=== PATIENT | male | born 1975 | race Caucasian/White ===

== ENCOUNTER 2021-12-25 05:57 | Emergency (ER) | payer MEDICAID ==
[~2021-12-25] VITALS: Ht 175.3 cm; Wt 109.1 kg
[2021-12-25] MEDS ORDERED: LORazepam 2 mg/ml vial IV ONE (06:20)
[2021-12-25 06:39] LABS: BASOPHILS % (AUTO) 0.5 % (0-1); EOSINOPHILS # (AUTO) 0.2 X10'3 (0-0.9); EOSINOPHILS % (AUTO) 3.3 % (0-6); HEMATOCRIT 41.4 % (42.0-52.0); LYMPHOCYTES # (AUTO) 1.9 X10'3 (1.1-4.8); LYMPHOCYTES % (AUTO) 29.6 % (21-51); MEAN CORPUSCULAR HEMOGLOBIN 30.5 PG (27.0-31.0); MEAN CORPUSCULAR HGB CONC 33.9 g/dL (33.0-36.5); MEAN CORPUSCULAR VOLUME 90.1 FL (78-98); MEAN PLATELET VOLUME 7.8 FL (7.4-10.4); MONOCYTES # (AUTO) 0.4 X10'3 (0-0.9); MONOCYTES % (AUTO) 6.4 % (2-12); NEUTROPHILS # (AUTO) 3.8 X10'3 (1.8-7.7); NEUTROPHILS % (AUTO) 60.2 % (42-75); PLATELET COUNT 246 X10'3 (140-440); WHITE BLOOD COUNT 6.4 X10'3 (4.5-11.0)
[2021-12-25 06:48] LABS: ALANINE AMINOTRANSFERASE 50 U/L (12-78); ALBUMIN 3.1 G/DL (3.4-5.0); ALBUMIN/GLOBULIN RATIO 0.9 (1.1-1.5); ALKALINE PHOSPHATASE 94 IU/L (46-116); ANION GAP 9 (8-16); ASPARTATE AMINO TRANSFERASE 35 U/L (10-37); BILIRUBIN,TOTAL 0.3 MG/DL (0.1-1.0); BLOOD UREA NITROGEN 24 MG/DL (7-18); BUN/CREATININE RATIO 29.6 (5.4-32.0); CALCIUM 8.4 MG/DL (8.5-10.1); CHLORIDE 109 MMOL/L (99-107); CREATININE 0.81 MG/DL (0.60-1.10); GLUCOSE 110 MG/DL (70-104); POTASSIUM 3.4 MMOL/L (3.5-5.1); SODIUM 141 MMOL/L (135-145); TOTAL PROTEIN 6.7 G/DL (6.4-8.2); eGFR > 90 ML/MIN
[2021-12-25 07:40] VITALS: BP 122/88
== END 2021-12-25 07:46 | disposition home or self-care (01) ==
LOC: ER 05:58
DX: R06.02 Shortness of breath (principal); F41.9 Anxiety disorder, unspecified; Z88.5 Allergy status to narcotic agent
CPT/HCPCS: 36415; 71045; 80053; 83880; 84484; 85025; 93005; 96374; 99285; J2060

== ENCOUNTER 2022-03-31 18:53 | Emergency (ER) | payer SELFPAY ==
[~2022-03-31] VITALS: Ht 172.7 cm; Wt 109.1 kg
[2022-03-31 18:57] VITALS: BP 124/92
== END 2022-03-31 19:18 ==
LOC: ER 18:53
DX: Z00.8 Encounter for other general examination (principal); F15.10 Other stimulant abuse, uncomplicated; I10 Essential (primary) hypertension; R00.0 Tachycardia, unspecified; F32.A Depression, unspecified; F17.200 Nicotine dependence, unspecified, uncomplicated; Z88.5 Allergy status to narcotic agent
CPT/HCPCS: 99283

== ENCOUNTER 2022-12-15 14:09 | Emergency (ER) | payer MEDICAID ==
[~2022-12-15] VITALS: Ht 175.3 cm; Wt 113.0 kg
--- NOTE | 2022-12-15 14:26 | NUR ---
DISCUSSED PTS S\S WITH MD FARRIS - ORDERS HAVE BEEN ENTERED.
[2022-12-15 14:39] LABS: BASOPHILS % (AUTO) 0.5 % (0-1); EOSINOPHILS # (AUTO) 0.2 X10'3 (0-0.9); EOSINOPHILS % (AUTO) 3.6 % (0-6); HEMATOCRIT 50.1 % (42.0-52.0); HEMOGLOBIN 16.6 g/dl (14.0-17.9); LYMPHOCYTES # (AUTO) 1.6 X10'3 (1.1-4.8); LYMPHOCYTES % (AUTO) 31.9 % (21-51); MEAN CORPUSCULAR HEMOGLOBIN 31.6 PG (27.0-31.0); MEAN CORPUSCULAR VOLUME 95.7 FL (78-98); MEAN PLATELET VOLUME 8.2 FL (7.4-10.4); MONOCYTES # (AUTO) 0.4 X10'3 (0-0.9); MONOCYTES % (AUTO) 7.2 % (2-12); NEUTROPHILS # (AUTO) 2.9 X10'3 (1.8-7.7); NEUTROPHILS % (AUTO) 56.8 % (42-75); PLATELET COUNT 231 X10'3 (140-440); RED BLOOD COUNT 5.24 X10'6 (4.70-6.10); RED CELL DISTRIBUTION WIDTH 14.9 % (11.5-14.5)
[2022-12-15 14:55] LABS: ALANINE AMINOTRANSFERASE 30 U/L (12-78); ALBUMIN 3.8 G/DL (3.4-5.0); ALBUMIN/GLOBULIN RATIO 1.1 (1.1-1.5); ALKALINE PHOSPHATASE 82 IU/L (46-116); ANION GAP 10 (8-16); ASPARTATE AMINO TRANSFERASE 16 U/L (10-37); BILIRUBIN,TOTAL 0.9 MG/DL (0.1-1.0); BLOOD UREA NITROGEN 13 MG/DL (7-18); BUN/CREATININE RATIO 14.1 (10.0-20.0); CALCIUM 8.7 MG/DL (8.5-10.1); CHLORIDE 108 MMOL/L (99-107); CREATININE 0.92 MG/DL (0.60-1.10); GLUCOSE 95 MG/DL (70-104); POTASSIUM 4.1 MMOL/L (3.5-5.1); SODIUM 144 MMOL/L (135-145); TOTAL CARBON DIOXIDE 26.1 MMOL/L (24-32); TOTAL PROTEIN 7.4 G/DL (6.4-8.2); eGFR 88 ML/MIN
[2022-12-15 15:06] LABS: MAGNESIUM 2.2 MG/DL (1.5-2.4)
--- NOTE | 2022-12-15 15:23 | NUR ---
PT HAS NO NEURO SYMPTOMS. DR. FARRIS AT BEDSIDE PERFORMING NEURO ASSESSMENT. PER MD PT DOES NOT MEET STROKE CRITERIA.
[2022-12-15 16:17] VITALS: BP 129/98
[2022-12-15 16:33] LABS: URINE AMPHETAMINE SCREEN NEGATIVE (Neg); URINE BARBITUATE SCREEN NEGATIVE (Neg); URINE BENZODIAZEPINES SCREEN NEGATIVE (Neg); URINE CANNABINOID SCREEN NEGATIVE (Neg); URINE COCAINE SCREEN NEGATIVE (Neg); URINE METHADONE SCREEN NEGATIVE (Neg); URINE OPIATE SCREEN NEGATIVE (Neg); URINE PHENCYCLIDINE SCREEN NEGATIVE (Neg)
== END 2022-12-15 16:20 | disposition home or self-care (01) ==
LOC: ER 14:10
DX: R42 Dizziness and giddiness (principal); F15.10 Other stimulant abuse, uncomplicated
CPT/HCPCS: 36415; 70450; 71045; 80053; 80305; 83735; 83880; 84484; 85025; 93005; 99285

== ENCOUNTER 2023-02-08 08:38 | Emergency (ER) | payer MEDICAID ==
[~2023-02-08] VITALS: Ht 175.3 cm; Wt 120.0 kg
[2023-02-08 08:46] VITALS: BP 150/103
[2023-02-08] MEDS ORDERED: AMOX-580 PO (09:09)
== END 2023-02-08 09:16 | disposition home or self-care (01) ==
LOC: ER 08:38
DX: K04.7 Periapical abscess without sinus (principal); F32.A Depression, unspecified; Z88.5 Allergy status to narcotic agent; Z79.899 Other long term (current) drug therapy
CPT/HCPCS: 99283

== ENCOUNTER 2023-07-04 20:33 | Emergency (ER) | payer MEDICAID ==
[~2023-07-04] VITALS: Ht 175.3 cm; Wt 108.7 kg
[~2023-07-04 20:33] MED LIST: DOCU-148 PO
[2023-07-04 20:39] VITALS: BP 166/98; PULSE 94; RESP 16; TEMP 98.5; O2SAT 96
[2023-07-04] MEDS ORDERED: DOXYCYCLINE 100MG CAPSULE PO STA (21:23)
[2023-07-04] MEDS ORDERED: DOXY-356 PO (21:26)
== END 2023-07-04 21:43 | disposition home or self-care (01) ==
LOC: ER 20:34
DX: L03.012 Cellulitis of left finger (principal); F15.10 Other stimulant abuse, uncomplicated; F32.A Depression, unspecified; Z88.5 Allergy status to narcotic agent; Z79.899 Other long term (current) drug therapy
CPT/HCPCS: 99283; A6258

== ENCOUNTER 2023-10-02 10:20 | Emergency (ER) | payer MEDICAID ==
[~2023-10-02] VITALS: Ht 175.3 cm; Wt 109.1 kg
[2023-10-02 10:28] VITALS: TEMP 97.9
[2023-10-02 11:07] LABS: BASOPHILS # (AUTO) 0.1 X10'3 (0-0.2); EOSINOPHILS # (AUTO) 0.1 X10'3 (0-0.9); EOSINOPHILS % (AUTO) 1.2 % (0-6); HEMATOCRIT 47.7 % (42.0-52.0); HEMOGLOBIN 16.4 g/dl (14.0-17.9); LYMPHOCYTES # (AUTO) 1.3 X10'3 (1.1-4.8); LYMPHOCYTES % (AUTO) 22.4 % (21-51); MEAN CORPUSCULAR HEMOGLOBIN 33.5 PG (27.0-31.0); MEAN CORPUSCULAR HGB CONC 34.3 g/dL (33.0-36.5); MEAN CORPUSCULAR VOLUME 97.7 FL (78-98); MEAN PLATELET VOLUME 8.2 FL (7.4-10.4); MONOCYTES # (AUTO) 0.3 X10'3 (0-0.9); NEUTROPHILS # (AUTO) 3.9 X10'3 (1.8-7.7); NEUTROPHILS % (AUTO) 69.4 % (42-75); PLATELET COUNT 239 X10'3 (140-440); RED BLOOD COUNT 4.88 X10'6 (4.70-6.10); RED CELL DISTRIBUTION WIDTH 13.6 % (11.5-14.5); WHITE BLOOD COUNT 5.6 X10'3 (4.5-11.0)
[2023-10-02 11:25] LABS: ALANINE AMINOTRANSFERASE 41 U/L (12-78); ALBUMIN/GLOBULIN RATIO 1.1 (1.1-1.5); ALKALINE PHOSPHATASE 69 IU/L (46-116); ANION GAP 10 (8-16); ASPARTATE AMINO TRANSFERASE 25 U/L (10-37); BILIRUBIN,TOTAL 0.7 MG/DL (0.1-1.0); BLOOD UREA NITROGEN 19 MG/DL (7-18); BUN/CREATININE RATIO 20.4 (10.0-20.0); CALCIUM 9.1 MG/DL (8.5-10.1); CHLORIDE 107 MMOL/L (99-107); CREATININE 0.93 MG/DL (0.60-1.10); GLUCOSE 100 MG/DL (70-104); POTASSIUM 3.9 MMOL/L (3.5-5.1); SODIUM 143 MMOL/L (135-145); TOTAL CARBON DIOXIDE 25.8 MMOL/L (24-32); TOTAL PROTEIN 7.6 G/DL (6.4-8.2); eCRCL 96 ML/MIN; eGFR 86 ML/MIN
[2023-10-02 11:39] LABS: PRO BRAIN NATRIURETIC PEPTIDE < 30 PG/ML (0-125)
[2023-10-02] MEDS ORDERED: HYDR25CA PO (12:24)
[2023-10-02 12:32] VITALS: BP 129/94; PULSE 86; RESP 16; O2SAT 95
== END 2023-10-02 12:40 | disposition home or self-care (01) ==
LOC: ER 10:21
DX: R07.9 Chest pain, unspecified (principal); F41.9 Anxiety disorder, unspecified; R42 Dizziness and giddiness; F32.A Depression, unspecified; Z88.5 Allergy status to narcotic agent; Z79.899 Other long term (current) drug therapy
CPT/HCPCS: 36415; 71045; 80053; 83880; 84484; 85025; 93005; 99285

== ENCOUNTER 2024-02-11 11:07 | Emergency (ER) | payer MEDICAID ==
[~2024-02-11] VITALS: Ht 175.3 cm; Wt 105.7 kg
[~2024-02-11 11:07] MED LIST changes: +HYDR25CA PO
[2024-02-11 11:46] VITALS: TEMP 98.2
[2024-02-11] MEDS ORDERED: CYCL-1 PO (12:48)
[2024-02-11 12:57] VITALS: BP 118/65; PULSE 65; RESP 14; O2SAT 99
== END 2024-02-11 12:53 | disposition home or self-care (01) ==
LOC: ER 11:07
DX: M25.512 Pain in left shoulder (principal); F15.90 Other stimulant use, unspecified, uncomplicated; Z88.5 Allergy status to narcotic agent; Z79.899 Other long term (current) drug therapy
CPT/HCPCS: 73030; 93005; 99283

== ENCOUNTER 2024-02-19 09:33 | Emergency (ER) | payer MEDICAID ==
[~2024-02-19] VITALS: Ht 175.3 cm; Wt 107.8 kg
[~2024-02-19 09:33] MED LIST changes: +CYCL-1 PO
[2024-02-19 09:34] VITALS: BP 174/111; PULSE 82; RESP 16; O2SAT 94
[2024-02-19] MEDS ORDERED: HYDR-3965 PO (09:54)
[2024-02-19 10:03] VITALS: TEMP 98
== END 2024-02-19 10:10 | disposition home or self-care (01) ==
LOC: ER 09:33
DX: M25.512 Pain in left shoulder (principal); F15.90 Other stimulant use, unspecified, uncomplicated; Z88.5 Allergy status to narcotic agent; Z79.899 Other long term (current) drug therapy
CPT/HCPCS: 99283

== ENCOUNTER 2024-06-09 17:17 | Emergency (ER) | payer MEDICAID ==
[~2024-06-09] VITALS: Ht 175.3 cm; Wt 104.5 kg
[2024-06-09 17:26] VITALS: BP 144/98; PULSE 91; RESP 18; O2SAT 95
[2024-06-09 18:02] LABS: BILIRUBIN,URINE NEGATIVE (Neg); CLARITY,URINE CLEAR (Clear); COLOR,URINE YELLOW (Yellow); GLUCOSE, URINE NEGATIVE (Neg); KETONES,URINE NEGATIVE (Neg); LEUKOCYTE ESTERASE ,URINE NEGATIVE (Neg); NITRITES, URINE NEGATIVE (Neg); OCCULT BLOOD,URINE NEGATIVE (Neg); PROTEIN,URINE NEGATIVE (Neg); UROBILINOGEN,URINE 0.2 E.U/dL (0.2-1.0)
[2024-06-09 18:03] LABS: UA COLLECTION TYPE CLN CATCH MIDSTREAM
[2024-06-09 19:02] LABS: BASOPHILS # (AUTO) 0.1 X10'3 (0-0.2); BASOPHILS % (AUTO) 1.2 % (0-1); EOSINOPHILS # (AUTO) 0.1 X10'3 (0-0.9); EOSINOPHILS % (AUTO) 2.8 % (0-6); HEMATOCRIT 42.1 % (42.0-52.0); HEMOGLOBIN 14.3 g/dl (14.0-17.9); LYMPHOCYTES # (AUTO) 1.4 X10'3 (1.1-4.8); MEAN CORPUSCULAR HEMOGLOBIN 34.5 PG (27.0-31.0); MEAN CORPUSCULAR HGB CONC 33.9 g/dL (33.0-36.5); MEAN CORPUSCULAR VOLUME 101.8 FL (78-98); MEAN PLATELET VOLUME 7.7 FL (7.4-10.4); MONOCYTES # (AUTO) 0.4 X10'3 (0-0.9); MONOCYTES % (AUTO) 9.4 % (2-12); NEUTROPHILS # (AUTO) 2.1 X10'3 (1.8-7.7); NEUTROPHILS % (AUTO) 51.6 % (42-75); PLATELET COUNT 219 X10'3 (140-440); RED BLOOD COUNT 4.13 X10'6 (4.70-6.10); RED CELL DISTRIBUTION WIDTH 13.8 % (11.5-14.5); WHITE BLOOD COUNT 4.1 X10'3 (4.5-11.0)
[2024-06-09 19:20] LABS: ALANINE AMINOTRANSFERASE 49 U/L (12-78); ALBUMIN 3.6 G/DL (3.4-5.0); ALBUMIN/GLOBULIN RATIO 1.1 (1.1-1.5); ALKALINE PHOSPHATASE 109 IU/L (46-116); ANION GAP 10 (8-16); ASPARTATE AMINO TRANSFERASE 31 U/L (10-37); BILIRUBIN,TOTAL 0.3 MG/DL (0.1-1.0); BLOOD UREA NITROGEN 16 MG/DL (7-18); BUN/CREATININE RATIO 22.5 (10.0-20.0); CALCIUM 8.5 MG/DL (8.5-10.1); CHLORIDE 106 MMOL/L (99-107); CREATININE 0.71 MG/DL (0.60-1.10); GLUCOSE 107 MG/DL (70-104); LIPASE 110 U/L (16-77); POTASSIUM 3.2 MMOL/L (3.5-5.1); SODIUM 141 MMOL/L (135-145); TOTAL CARBON DIOXIDE 25.3 MMOL/L (24-32); TOTAL PROTEIN 6.8 G/DL (6.4-8.2); eCRCL 124 ML/MIN; eGFR > 90 ML/MIN
[2024-06-09] MEDS ORDERED: iohexol 300mg/ml 100ml inj. ONE (19:33)
[2024-06-09] MEDS ORDERED: BISA10SU60 RC (20:14)
[2024-06-09 21:43] VITALS: TEMP 98.9
== END 2024-06-10 00:04 | disposition home or self-care (01) ==
LOC: ER 17:17
DX: K85.90 Acute pancreatitis without necrosis or infection, unspecified (principal); K76.0 Fatty (change of) liver, not elsewhere classified; K42.9 Umbilical hernia without obstruction or gangrene; K59.00 Constipation, unspecified; F32.A Depression, unspecified; F15.90 Other stimulant use, unspecified, uncomplicated; Z88.5 Allergy status to narcotic agent; Z79.899 Other long term (current) drug therapy
CPT/HCPCS: 74177; 80053; 81003; 83690; 85025; 99285; Q9967

== ENCOUNTER 2024-07-09 12:01 | Emergency (ER) | payer MEDICAID ==
[~2024-07-09] VITALS: Ht 175.3 cm; Wt 109.1 kg
[~2024-07-09 12:01] MED LIST changes: +BISA10SU60 RC
[2024-07-09] MEDS: ibuprofen tablet 400 MG TABLET PO ONE (12:48)
[2024-07-09] MEDS: ibuprofen 200mg tablet PO ONE (12:48)
[2024-07-09] MEDS ORDERED: ALBU8HFA INH (13:41)
[2024-07-09 13:47] VITALS: BP 109/78; PULSE 120; TEMP 99.2; O2SAT 96
[2024-07-09 13:48] VITALS: RESP 17
== END 2024-07-09 13:48 | disposition home or self-care (01) ==
LOC: ER 12:02
DX: J06.9 Acute upper respiratory infection, unspecified (principal); F15.90 Other stimulant use, unspecified, uncomplicated; F32.A Depression, unspecified; Z79.899 Other long term (current) drug therapy; Z20.822 Contact with and (suspected) exposure to COVID-19
CPT/HCPCS: 36415; 71045; 87502; 87503; 87811; 99284

== ENCOUNTER 2024-08-28 12:26 | Emergency (ER) | payer MEDICAID ==
[~2024-08-28] VITALS: Ht 175.3 cm; Wt 110.0 kg
[2024-08-28 13:03] VITALS: BP 139/94; PULSE 86; RESP 18; TEMP 98.1; O2SAT 97
[2024-08-28] MEDS ORDERED: CELE-389 PO (15:18)
[2024-08-28] MEDS ORDERED: celeCOXIB 100mg capsule PO SCH (15:20)
[2024-08-28] MEDS: celeCOXIB 100mg capsule PO ONE (16:13)
== END 2024-08-28 16:18 | disposition home or self-care (01) ==
LOC: ER 12:26
DX: M25.561 Pain in right knee (principal); F15.90 Other stimulant use, unspecified, uncomplicated; F32.A Depression, unspecified
CPT/HCPCS: 73564; 99283

== ENCOUNTER 2024-10-04 06:40 | Emergency (ER) | payer MEDICAID ==
[~2024-10-04] VITALS: Ht 175.3 cm; Wt 109.6 kg
[~2024-10-04 06:40] MED LIST changes: +CELE-389 PO
[2024-10-04] MEDS ORDERED: DOXY-1 PO (07:47)
[2024-10-04] MEDS: DOXYCYCLINE 100MG CAPSULE PO STA (07:52)
[2024-10-04 08:02] VITALS: BP 120/90; PULSE 97; RESP 12; TEMP 97; O2SAT 97
== END 2024-10-04 08:05 | disposition home or self-care (01) ==
LOC: ER 06:41
DX: S80.212A Abrasion, left knee, initial encounter (principal); S80.211A Abrasion, right knee, initial encounter; L08.9 Local infection of the skin and subcutaneous tissue, unspecified; F32.A Depression, unspecified; F15.90 Other stimulant use, unspecified, uncomplicated; Z79.899 Other long term (current) drug therapy; W18.39XA Other fall on same level, initial encounter; Y93.89 Activity, other specified; Y92.89 Other specified places as the place of occurrence of the external cause; Y99.8 Other external cause status
CPT/HCPCS: 73564; 99284; A6449

== ENCOUNTER 2025-06-25 12:22 | Emergency (ER) | payer MEDICAID ==
[~2025-06-25] VITALS: Ht 172.7 cm; Wt 113.6 kg
[2025-06-25 12:50] LABS: MEAN PLATELET VOLUME 6.9 FL (7.4-10.4); RED CELL DISTRIBUTION WIDTH 14.1 % (11.5-14.5)
--- NOTE | 2025-06-25 13:11 | ELECTROCARDIOGRAPH REPORT ---
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 KEVIN Horn Measurements Intervals [place] Rate: 89 P: 24 CO: 182 QRS: -48 QRSD: 106 T: 23 QT: 375 QTc: 457 Interpretive Statements Sinus rhythm Left anterior fascicular block Electronically Signed On 06-27-2025 19:23:[address] KEVIN Horn Please click the below link to view image of tracing.
[2025-06-25 13:14] LABS: CREATININE 0.84 MG/DL (0.60-1.10); PRO BRAIN NATRIURETIC PEPTIDE < 30 PG/ML (0-125); TOTAL CARBON DIOXIDE 27.1 MMOL/L (24-32); eCRCL 101 ML/MIN; eGFR > 90 ML/MIN
--- NOTE | 2025-06-25 15:06 | RADIOLOGY REPORT ---
CHEST RADIOGRAPH Indication: CP Technique: Single frontal view of the chest was obtained Comparison: DI CHEST,SINGLE VIEW on DOS: 07/09/24, DI CHEST,SINGLE VIEW on DOS: 10/02/23, CHEST,SINGLE VIEW on DOS: 12/15/22, CHEST,SINGLE VIEW on DOS: 12/25/21 FINDINGS: Lines and Tubes: None Lungs: No focal consolidation. Pleura: No effusion. No pneumothorax. Cardiomediastinal contours: Unremarkable Bones: No acute osseous abnormality. IMPRESSION: No acute cardiopulmonary disease.
[2025-06-25 15:50] VITALS: TEMP 97.8
--- NOTE | 2025-06-25 18:05 | Physician Documentation ---
History of Present Illness ~ Chief Complaint: Eye Pain Stated Complaint: SWOLLEN EYE Time Seen by MD: 18:03 Primary Medical Doctor: NONE Mode of Arrival: Ambulatory HPI Patient presents to the emergency room for evaluation of his left eye as well as chest pain that has been going on for months. He states his chest pain occurs in the evenings in his difficult to describe. He works at the [employer] that has states he has no limitations during his day with any sort of chest pain. He is not have a primary care provider. He that has not smoke. He denies history of blood pressure cholesterol or diabetes but then he would get he is not have a doctor. He acknowledges the need to find a doctor. He noted today that has left eye had some blood in it therefore came to be evaluated. Upon further discussion that has no vision changes in his affected eye. Medication Reconciliation Allergies: Coded Allergies: No Known Allergies (Unverified , 06/25/25) Scheduled Bisacodyl (Dulcolax), 1 SUPP RC DAILY Celecoxib (Celebrex), 1 CAP PO DAILY Cyclobenzaprine* (Cyclobenzaprine*), 1 TAB PO HS Docusate Sodium (Colace), 1 CAP PO Q12H Hydroxyzine Pamoate (Vistaril), 1-2 CAP PO Q8H Pantoprazole Sodium (PROTONIX tablet), 1 TAB PO DAILY Past Medical History Past Medical History: No Pertinent History, Depression Past Surgical History: noncontributory Drug Use: methamphetamine Lives In: Home Occupation: employed Review of Systems ROS All review of systems negative except as per HPI Physical Exam Vital Signs: Temperature: 97.8, Source: Temporal, Heart Rate: 82, Respiratory Rate: 16, BP: 131/97, Pulse Oximetry: 95, Weight: 113.600 Oxygen Flow Rate: 0 Physical Exam General: Patient is awake, alert, oriented x4 in no acute distress and well appearing.~ Head: Normocephalic and atraumatic. Eyes: Conjunctival normal. EOMI. PERRL. Noted right-sided subconjunctival hematoma on medial aspect ranging from the 6 o'clock position to the 9 o'clock position does not cross limbus ENT: Mucous membranes moist. Neck: Supple, trachea is midline. Chest: Clear to auscultation bilaterally without rales, rhonchi, or wheezes. There is no accessory muscle use or retractions. Cardiac: RRR without murmurs, gallops, or rubs. Visual Acuity : Eye Location: Right Vision Acuity Degree: 20/20 Correction: Uncorrected Progress Results/Orders Results/Orders Completed Orders - SHEMAR COE MD Famotidine Tablet (Pepcid Tablet) (06/25/25 18:15) Vital Signs 06/25/25 06/25/25 06/25/25 12:26 15:50 18:16 Temp 98.5 97.8 Pulse 98 82 65 Resp 18 16 18 B/P (MAP) 141/76 131/97 (108) 129/99 (109) Pulse Ox 99 95 100 O2 Flow Rate 0 0 Laboratory Tests Test 06/25/25 12:39 06/25/25 15:27 White Blood Count 4.7 Red Blood Count 4.58 L Hemoglobin 15.6 Hematocrit 46.5 Mean Corpuscular Volume 101.5 H Mean Corpuscular Hemoglobin 34.0 H Mean Corpuscular Hemoglobin Concent 33.5 Red Cell Distribution Width 14.1 Platelet Count 232 Mean Platelet Volume 6.9 L Neutrophils (%) (Auto) 60.7 Lymphocytes (%) (Auto) 30.8 Monocytes (%) (Auto) 5.0 Eosinophils (%) (Auto) 2.8 Basophils (%) (Auto) 0.7 Neutrophils # (Auto) 2.8 Lymphocytes # (Auto) 1.4 Monocytes # (Auto) 0.2 Eosinophils # (Auto) 0.1 Basophils # (Auto) 0.0 CBC Comment Sodium Level 145 Potassium Level 3.5 Chloride Level 112 H Carbon Dioxide Level 27.1 Anion Gap 6 L Blood Urea Nitrogen 22 H Creatinine 0.84 Estimated GFR/1.73 m2 > 90 BUN/Creatinine Ratio 26.2 H Glucose Level 96 Calcium Level 8.0 L Troponin I High Sensitivity 8 7 Pro-B-Type Natriuretic Peptide < 30 Albumin 3.8 Chemistry Comments Troponin I High Sens Percent Delta 12 Troponin I Hi Sens Absolute Change -1 EKG/XRAY/CT/US/VASC/MRI EKG : Additional Comment EKG interpreted by myself shows time of 13 10, rate 89, sinus rhythm, normal axis, no ST changes Chest X-Ray : Additional Comments Exam: CHEST,SINGLE VIEW CHEST RADIOGRAPH Indication: CP Technique: Single frontal view of the chest was obtained Comparison: DI CHEST,SINGLE VIEW on DOS: 07/09/24, DI CHEST,SINGLE VIEW on DOS: 10/02/23, CHEST,SINGLE VIEW on DOS: 12/15/22, CHEST,SINGLE VIEW on DOS: 12/25/21 FINDINGS: Lines and Tubes: None Lungs: No focal consolidation. Pleura: No effusion. No pneumothorax. Cardiomediastinal contours: Unremarkable Bones: No acute osseous abnormality. IMPRESSION: No acute cardiopulmonary disease. Medical Decision Making Additional information obtaine: N/A Findings Heart score of one. Patient presented to the emergency room with chest pain. Differentials include but are not limited to ACS, reflux, pulmonary embolism, pneumothorax therefore emergent labs and imaging indicated. Labs and imaging reassuring. Patient with a reassuring heart score. He is able to do his physical job without limitations during the day which is reassuring. The absolute need to get a doctor and to follow up for primary care discussed as well as ER precautions return if symptoms. Given patient reports that his chest pain that has worsened the evening suspect he may be suffering from heartburn we will treat him accordingly. He also has a subconjunctival hematoma which was discussed with him. Ear Diff. Dx: Considerations: Include: Abrasion, Cerumen impaction, Foreign body, Otitis externa, Barotrauma, Otitis media, Perforation, Referred pain- dental, Referred pain-pharyngitis, Referred pain-sinusitis, Referred pain-TMJ syn., Tympanic Membrane Injury, Other Eye Diff. Dx: Considerations: Include: Chalaz[place], Conjuctivits-allergic, Conjuctivitis-bacterial, Conjuctivits-chlamydial, Conjuctivitis-viral, Corneal abrasion, Corneal laceration, Corneal ulceration, Foreign body-conjuctiva, Foreign body-corneal, Foreign body-intraocular, Foreign body-lid, Glaucoma, Globe rupture, Hordeolum, Iritis, Orbital cellulitis, Periobital cellulitis, Retinal artery occulsion, Retinal vein occlusion, Rust ring, Subconjunctival hem, Ultraviolet keratitis, Uveitis, Vitreous hemorrhage, Other Nose Diff. Dx: Considerations: Include: Abrasion, Anterior nasal bleed, Avulsion, Contusion, Coagulopathy, Fracture-nasal bone, Fracture-septum, Hypertension, Laceration, Other, Posterior nasal bleed, Retained foreign body, Septal hematoma Tooth Diff. Dx: Considerations: Include: Alveolar fracture, Aveolar osteitis, ANUG, Facial cellulitis, Periapical abscess, Periodontal abscess, Post-ext raction bleeding, Pulpitis, Trigeminal neuralgia, Tooth-avulsion, Tooth- eruption, Tooth-fracture, Tooth-subluxation, Other Throat Diff Dx: Considerations: Include: AIDS, Epiglottitis, Esophageal candidiasis, Hand foot mouth disease, Herpangina, Herpetic stomatitis, Herpes simplex, Infection mononucleosis, Immunodeficiency, Jerson's angina, Peritonsillar abscess, Peritonsillar cellulitis, Pharyngitis-diphtheria, Pharyngitis-strepococcal, Pharyngitis-viral, Thrush, URI, Other Departure Disposition: HOME / SELF CARE / HOMELESS Impression: Primary Impression: Subconjunctival hematoma Additional Impression: Chest pain Condition: Stable Discharge Instructions: Nonspecific Chest Pain, Adult, Subconjunctival Hemorrhage Additional Instructions: obtain and follow up with your doctor. It takes time to obtain a doctor so s tart now. Return for any other concerns. Referrals: NO PRIMARY CARE PROVIDER (PCP) Prescriptions Pantoprazole Sodium (PROTONIX tablet) 40 Mg Tablet.dr 1 TAB PO DAILY for 30 Days, #30 TAB 0 Refills Prov: SHEMAR COE MD 06/25/25 Signature Scribe Signature: No scribe Attestation: The note accurately reflects work and decisions made by me.Shemar Coe MD 06/25/25 18:31 SHEMAR COE MD Jun 25, 2025 18:05
[2025-06-25] MEDS ORDERED: PANT-47 PO (18:13)
[2025-06-25 18:29] VITALS: BP 126/68; PULSE 68; RESP 16; O2SAT 99
== END 2025-06-25 18:30 | disposition home or self-care (01) ==
LOC: ER 12:24
DX: S05.11XA Contusion of eyeball and orbital tissues, right eye, initial encounter (principal); R07.9 Chest pain, unspecified; F32.A Depression, unspecified; F15.90 Other stimulant use, unspecified, uncomplicated; Z79.899 Other long term (current) drug therapy; X58.XXXA Exposure to other specified factors, initial encounter; Y93.89 Activity, other specified; Y92.89 Other specified places as the place of occurrence of the external cause; Y99.8 Other external cause status
CPT/HCPCS: 36415; 71045; 80048; 83880; 84484; 85025; 93005; 99285